=== PATIENT | female | born 1940 | race African-American/Black ===

== ENCOUNTER 2017-01-06 00:10 | Emergency (ER) | payer OTHER, MEDICARE ==
[2017-01-06 00:52] VITALS: BP 152/93; PULSE 78; TEMP 98; BMI 25.7
[2017-01-06] MEDS ORDERED: valACYclovir HCL 1000 MG TABLET PO ONE (01:04)
[2017-01-06] MEDS ORDERED: predniSONE 20 MG TABLET (UD) PO ONE (01:04)
[2017-01-06] MEDS ORDERED: OXYCODONE/APAP 5/325MG COMBO TABLET PO ONE (01:05)
[2017-01-06] MEDS ORDERED: OXYCODONE/APAP 5/325MG COMBO TABLET ONE (01:12)
[2017-01-06] MEDS ORDERED: predniSONE 20 MG TABLET (UD) ONE (01:12)
--- NOTE | 2017-01-06 01:14 | PDOC ---
"History of Present Illness - General Chief Complaint: Rash Stated Complaint: RASH Time Seen by Provider: 01/06/17 00:59 History Source: Patient Exam Limitations: No Limitations - History of Present Illness Initial Comments: 01/06/17 01:05 76yo Female patient presents to ED c/o rash to upper back and right arm. Patient states symptoms began on Sunday with rash on back. Denies fever, cough , congestion, CP, Abd pain, n/v/d, diff breathing or any other complaints. Patient states rash does not itch, it really just hurts. Timing/Duration: reports: week Severity: Yes: moderate Location: reports: extremities, torso Respiratory Risk Factors: denies: no cause identified, exposure to illness, exposure to allergen, foods, insect bite, insect sting, medications, pollen, soaps, other Modifying Factors: improves with: topical steriods Associated Symptoms: reports: blisters Past History - Travel Traveled outside of the country in the last 30 days: No Close contact w/someone who was outside of country & ill: No - Past Medical History Allergies/Adverse Reactions: Allergies Allergy/AdvReac Type Severity Reaction Status Date / Time pregabalin [From Lyrica] Allergy Verified 01/06/17 00:33 rosuvastatin calcium Allergy Verified 01/06/17 00:33 [From Crestor] tramadol Allergy Verified 01/06/17 00:33 zolpidem tartrate Allergy Verified 01/06/17 00:33 [From Ambien] Home Medications: Ambulatory Orders Amlodipine Besylate [Norvasc -] 10 mg PO DAILY 01/06/17 Oxycodone HCl/Acetaminophen [Percocet 5-325 mg Tablet] 1 tab PO Q6H PRN #20 tablet MDD 4 tablets 01/06/17 Prednisone [Deltasone -] 40 mg PO DAILY #8 tablet 01/06/17 Valacyclovir HCl [Valtrex -] 1,000 mg PO Q8H #21 tablet 01/06/17 Cancer: Yes (bladder in remission, rt breast) HTN: Yes Hypercholesterolemia: Yes - Psycho/Social/Smoking Cessation Hx Anxiety: No Suicidal Ideation: No Smoking Status: No Smoking History: Former smoker Have you smoked in the past 12 months: No Number of Cigarettes Smoked Daily: 0 Information on smoking cessation initiated: No Review of Systems - Review of Systems Able to Perform ROS?: Yes Is the patient limited Mexican proficient: No Constitutional: No: Chills, Fever HEENTM: No: Eye Pain, Nose Pain, Throat Swelling, Difficulty Swallowing, Mouth Swelling Respiratory: No: Cough, Shortness of Breath, Stridor, Wheezing Cardiac (ROS): No: Chest Pain, Edema, Palpitations, Syncope, Chest Tightness ABD/GI: No: Diarrhea, Nausea, Vomiting Musculoskeletal: Yes: Back Pain Integumentary: Yes: Erythema, Rash. No: Bruising, Sweating All Other Systems: Reviewed and Negative *Physical Exam - Vital Signs Last Vital Signs Temp Pulse Resp BP Pulse Ox 98 F 78 20 152/93 98 01/06/17 00:32 01/06/17 00:32 01/06/17 00:32 01/06/17 00:32 01/06/17 00:32 - Physical Exam General Appearance: Yes: Nourished, Appropriately Dressed, Mild Distress. No: Apparent Distress, Moderate Distress, Severe Distress HEENT: positive: EOMI, LAW, Normal ENT Inspection, Normal Voice, Symmetrical, TMs Normal, Pharynx Normal. negative: Pharyngeal Erythema, Tonsillar Exudate, Tonsillar Erythema, TM Bulging, TM Dull, TM Erythema Neck: positive: Trachea midline, Supple. negative: Rigid, Stridor, Lymphadenopathy (R), Lymphadenopathy (L) Respiratory/Chest: positive: Lungs Clear, Normal Breath Sounds. negative: Respiratory Distress, Accessory Muscle Use, Labored Respiration, Rapid RR Cardiovascular: positive: Regular Rhythm, Regular Rate. negative: Edema, JVD, Murmur Musculoskeletal: positive: Normal Inspection. negative: CVA Tenderness, Vertebral Tenderness Extremity: positive: Normal Capillary Refill, Normal Inspection, Normal Range of Motion. negative: Pedal Edema, Swelling, Calf Tenderness, Erythema Integumentary: positive: Normal Color, Dry, Warm, Erythema, Rash, Other ( Vesicles in clusters to upper back and medial aspect of right arm. Rash along dermatome T1) Neurologic: positive: obstetrician II-XII NML intact, Fully Oriented, Alert, Normal Mood/ Affect, Normal Response, Motor Strength 5/5 Progress Note - Progress Note Progress Note: Please direct any questions regarding prescription data displayed on the [facility] to the dispensing pharmacy (Click - Show Extended View). The dispenser is the source of all data presented. Only the dispenser can confirm or modify the data reported to, and displayed on, the [facility]. Patient Search Multi-Patient Search Reports Drug Listing Designation My [facility] Numbers Data Detail Level: Printer-Friendly View | Show Extended View Confidential Drug Utilization Report Search Terms: Se Howard, 1940 Search Date: 01/06/2017 01:17:36 AM The Drug Utilization Report below displays all of the controlled substance prescriptions, if any, that your patient has filled in the last twelve months. The information displayed on this report is compiled from pharmacy submissions to the Department, and accurately reflects the information as submitted by the pharmacies. This report was requested by: Eric Iyer | Reference #: [id number] Others' Prescriptions Patient Name: Se Howard Date: 1940 Address: [address] [place] [address] Sex: Female Rx Written Rx Dispensed Drug Quantity Days Supply Prescriber Name 07/26/2016 07/28/2016 hydrocodone-acetaminophen 5-325 mg tablet 90 30 Patricia, Jacque 05/09/2016 05/10/2016 hydrocodone-acetaminophen 5-325 mg tablet 90 30 Patricia, Jacque 02/03/2016 02/04/2016 fentanyl 25 mcg/hr patch 5 15 Patricia, Jacque * - Drugs marked with an asterisk are compound drugs. If the compound drug is made up of more than one controlled substance, then each controlled substance will be a separate row in the table. Search Other States To report suspicious activity related to controlled substances, please click here and provide any relevant information. To send questions or comments about this report to the [facility] [employer], please click here or call (Option 1). For information regarding substance abuse rehabilitation treatment, please visit www.[place].gov or call *DC/Admit/Observation/Transfer Diagnosis at time of Disposition: Shingles outbreak Qualifiers: Herpes zoster complications: without complications Qualified Code(s): B02.9 - Zoster without complications - Discharge Dispostion Disposition: HOME Condition at time of disposition: Stable Admit: No - Prescriptions Prescriptions: Prednisone [Deltasone -] 40 mg PO DAILY #8 tablet Oxycodone HCl/Acetaminophen [Percocet 5-325 mg Tablet] 1 tab PO Q6H PRN #20 tablet MDD 4 tablets PRN Reason: Severe Pain Valacyclovir HCl [Valtrex -] 1,000 mg PO Q8H #21 tablet - Patient Instructions Printed Discharge Instructions: Shingles (Zoster) Vaccine, DI for Shingles, Shingles (Herpes Zoster) (Alternative Therapy) Additional Instructions: FOLLOW UP WITH YOUR DOCTOR THIS WEEK. CALL TO SCHEDULE APPOINTMENT. YOU SHOULD HAVE A DISCUSSION REGARDING SHINGLES VACCINATION. TAKE MEDICATIONS PRESCRIBED. DO NOT DRIVE, DRINK ALCOHOL, OR OPERATE HEAVY MACHINERY WHILE TAKING PERCOCET. KEEP RASH DRY. NO TOPICAL CREAMS OR LOTIONS. RETURN IF ANY CONCERNS FOR FURTHER EVALUATION. Print Language: WALLISIAN"
[2017-01-06] MEDS ORDERED: valACYclovir HCL 500 MG TABLET (FP) PO ONE (01:30)
== END 2017-01-06 01:55 | disposition home or self-care (01) ==
LOC: JER 00:10
DX: B02.9 Zoster without complications (principal); I10 Essential (primary) hypertension; E78.00 Pure hypercholesterolemia, unspecified; Z85.51 Personal history of malignant neoplasm of bladder; Z85.3 Personal history of malignant neoplasm of breast
CPT/HCPCS: 99282-25

== ENCOUNTER 2023-09-11 17:55 | Emergency (ER) | payer OTHER, MEDICARE ==
[2023-09-11 18:12] VITALS: BP 154/94; PULSE 86; RESP 16; TEMP 98; BMI 27.4
[2023-09-11] MEDS ORDERED: SODIUM CHLORIDE 0.9% 1000 ML INFUS.BAG IV ONE (18:43)
[2023-09-11] MEDS ORDERED: DEXAMETHASONE SOD PHOSPHATE 10 MG/1 ML VIAL IVPUSH ONE (18:44)
[2023-09-11] MEDS ORDERED: ACETAMINOPHEN 1000 MG/100 ML BAG IVPB ONE (18:44)
[2023-09-11] MEDS ORDERED: ACETAMINOPHEN INJECTION 100 ML IVPB ONE (19:43)
[2023-09-11] MEDS ORDERED: DEXAMETHASONE SOD PHOSPHATE 10 MG/1 ML VIAL ONE (19:43)
[2023-09-11 19:58] LABS: BASO % 0.8 % (0-2.0); EOS % 1.3 % (0-4.5); HEMATOCRIT 40.1 % (32.4-45.2); HEMOGLOBIN 13.1 GM/dL (10.7-15.3); LYMPH % 31.7 % (8-40); MCH 29.9 pg (25.7-33.7); MCHC 32.6 g/dl (32.0-36.0); MEAN CELL VOLUME 91.6 fl (80-96); MEAN PLT VOLUME 7.7 fl (7.5-11.1); MONO % 10.4 % (3.8-10.2); NEUT % 55.8 % (42.8-82.8); PLATELET COUNT 326 10^3/uL (134-434); RBC 4.38 M/mm3 (3.60-5.2); RDW 14.2 % (11.6-15.6)
[2023-09-11 20:14] LABS: CALCIUM 9.6 mg/dL (8.5-10.1)
[2023-09-11 20:15] LABS: ALBUMIN 3.6 g/dl (3.4-5.0)
[2023-09-11 20:18] LABS: CREATININE 1.8 mg/dL (0.55-1.3)
[2023-09-11 20:20] LABS: BILIRUBIN,TOTAL 0.6 mg/dL (0.2-1); TOT PROT 8.5 g/dl (6.4-8.2)
[2023-09-11 20:22] LABS: BLOOD UREA NITROGEN 43.4 mg/dL (7-18)
[2023-09-11 20:25] LABS: URIC ACID 8.9 mg/dL (2.6-7.2)
[2023-09-11 20:49] LABS: ERYTHROCYTE SEDIMENTATION RATE 81 mm/hr (0-30)
== END 2023-09-11 21:43 | disposition home or self-care (01) ==
LOC: JERFT 17:55
PROC: 3E033NZ Introduction of Analgesics, Hypnotics, Sedatives into Peripheral Vein, Percutaneous Approach (ICD-10-PCS; principal; 2023-09-11)
PROC: 3E033GC Introduction of Other Therapeutic Substance into Peripheral Vein, Percutaneous Approach (ICD-10-PCS; 2023-09-11)
DX: M79.672 Pain in left foot (principal); M10.9 Gout, unspecified
CPT/HCPCS: 36415; 80053; 84550; 85025; 85651; 86140; 96374; 96375; 99284-25; J1100